=== PATIENT | male | born 1995 | race Caucasian/White ===

== ENCOUNTER 2017-03-26 04:53 | Emergency (ER) | payer MEDICAID, OTHER ==
[~2017-03-26] VITALS: Ht 177.8 cm; Wt 66.0 kg
[2017-03-26 05:00] VITALS: Ht 177.8 cm; Wt 66.0 kg
[2017-03-26] MEDS ORDERED: ONDANSETRON (ODT) 4 MG TAB ODT STA (05:20)
[2017-03-26] MEDS ORDERED: ONDA4TAB14 PO (05:27)
[2017-03-26] MEDS ORDERED: IBUP-1542 PO (05:27)
[2017-03-26] MEDS ORDERED: DICY10CA60 PO (05:27)
[2017-03-26] MEDS ORDERED: IBUPROFEN 600 MG TAB PO ONE (05:30)
[2017-03-26] MEDS ORDERED: DICYCLOMINE 10 MG CAP PO ONE (05:30)
--- NOTE | 2017-03-26 05:37 | ERD ---
ER Documentation Chief Complaint Date/Time DATE: 03/26/17 TIME: 05:31 Chief Complaint body aches, vomiting, diarrhea x1 day HPI 21-year-old male presents here in emergency department for complaints of diarrhea vomiting bodyaches started tonight. Patient had 3 episodes of vomiting 3 episodes of diarrhea. Patient does not have any blood in the stool or black stool. Patient does not have any blood in the vomit. Patient does not have any sick contacts. Patient denies any recent travel. Patient denies any fever or chills. ROS All systems reviewed and are negative except as per history of present illness. Medications Home Meds Active Scripts Ondansetron (Ondansetron Odt) 4 Mg Tab.rapdis, 4 MG PO Q8 Y for NAUSEA AND/OR VOMITING, #30 TAB Prov:QUIRINO BEE COLLECTION ADVISOR 03/26/17 Ibuprofen* (Motrin*) 600 Mg Tab, 600 MG PO Q6H Y for PAIN AND OR ELEVATED TEMP, #30 TAB Prov:QUIRINO BEE COLLECTION ADVISOR 03/26/17 Dicyclomine Hcl* (Bentyl*) 10 Mg Capsule, 10 MG PO QID, #20 CAP Prov:QUIRINO BEE COLLECTION ADVISOR 03/26/17 Allergies Allergies: Coded Allergies: No Known Allergy (Unverified , 10/23/14) PMhx/Soc Medical and Surgical Hx: pt denies Medical Hx, pt denies Surgical Hx Hx Alcohol Use: No Hx Substance Use: No Hx Tobacco Use: No Smoking Status: Never smoker FmHx Family History: No coronary disease, No diabetes, No other Physical Exam Vitals Vital Signs Date Time Temp Pulse Resp B/P Pulse Ox O2 Delivery O2 Flow Rate FiO2 03/26/17 05:51 99.3 96 18 97 Room Air 03/26/17 05:00 99.0 107 20 134/64 100 Physical Exam GENERAL: The patient is well developed and appropriate for usual state of health, in no apparent distress. CHEST: Clear to auscultation bilaterally. There are no rales, wheezes or rhonchi. HEART: Regular rate and rhythm. No murmurs, clicks, rubs or gallops. No S3 or S4. ABDOMEN: Soft, nontender and nondistended. Hyperactive bowel sounds. No rebound or guarding. No gross peritonitis. No gross organomegaly or masses. No Pollard sign or McBurney point tenderness. BACK: No midline or flank tenderness. EXTREMITIES: Equal pulses bilaterally. There is no peripheral clubbing, cyanosis or edema. No focal swelling or erythema. Full range of motion. Grossly neurovascularly intact. NEURO: Alert and oriented. Cranial nerves 2-12 intact. Motor strength in all 4 extremities with 5/5 strength. Sensation grossly intact. Normal speech and gait. SKIN: There is no apparent rash or petechia. The skin is warm and dry. HEMATOLOGIC AND LYMPHATIC: There is no evidence of excessive bruising or lymphedema. No gross cervical, axillary, or inguinal lymphadenopathy. Results 24 hrs Current Medications Medications (Trade) Dose Ordered Sig/Pat Route PRN Reason Start Time Stop Time Status Last Admin Dose Admin Ondansetron HCl (Zofran Odt) 4 mg ONCE STAT ODT 03/26/17 05:20 03/26/17 05:21 DC 03/26/17 05:27 Dicyclomine HCl (Bentyl) 20 mg ONCE ONCE PO 03/26/17 05:30 03/26/17 05:31 DC 03/26/17 05:27 Ibuprofen (Motrin) 600 mg ONCE ONCE PO 03/26/17 05:30 03/26/17 05:31 DC 03/26/17 05:27 Patient was given Zofran here in the emergency department. After treatment, patient was able to tolerate po fluids here in the emergency department without any vomiting. There is no signs and symptoms of dehydration. Bentyl was given here in emergency department, after treatment, patient verbalizing much better.Patient was given medication for pain here in emergency department, after treatment, patient verbalized feeling much better. Patient's pain is improved. Procedures/MDM Medical Decision Making: Patient's symptoms of vomiting and diarrhea bodyaches most likely consistent with viral gastroenteritis. No symptoms of dehydration at this time. There is low suspicion for abdominal emergencies at this time. Patients abdominal exam is normal at this time.. Radiology exam is not indicated at this time. There is low suspicion for appendicitis, cholecystitis, abdominal aortic aneurysms or peritonitis at this time. There is low suspicion for sepsis. Patient appears well and is hemodynamically stable. Disposition: Home. Condition: Stable Prescription Zofran ibuprofen Bentyl Instructions: Patient is advised to take medications as prescribed. Patient is advised to rest, increase fluid intake and do brat diet for next 1-2 days and progress as tolerated. Patient is advised that if symptoms are worse, severe abdominal pain, uncontrolled vomiting, high fever, severe flank pain, worst signs and symptoms, to return to the emergency department immediately. Otherwise, patient can follow up with primary care doctor in 5-7 days. Departure Diagnosis: Primary Impression: Viral gastroenteritis Condition: Stable Patient Instructions: Gastroenteritis, Viral (6Y-Adult) QUIRINO BEE NP March 26, 2017 05:37
[2017-03-26 05:51] VITALS: PULSE 96; RESP 18; TEMP 99.3
== END 2017-03-26 05:52 | disposition home or self-care (01) ==
LOC: FTE 04:53
DX: A08.4 Viral intestinal infection, unspecified (principal)
CPT/HCPCS: Z7610 ×3; 99284

== ENCOUNTER 2019-03-31 20:49 | Emergency (ER) | payer MEDICAID, OTHER ==
[~2019-03-31] VITALS: Ht 182.9 cm; Wt 70.0 kg
[~2019-03-31 20:49] MED LIST: DICY10CA40 PO; IBUP-1542 PO; ONDA4TAB14 PO
[2019-03-31 21:12] VITALS: BP 134/67; PULSE 89; RESP 20; Ht 182.9 cm; Wt 70.0 kg
[2019-03-31] MEDS ORDERED: IBUP-1542 PO (22:51)
[2019-03-31] MEDS ORDERED: BENZ1LOZ52 MM (22:52)
--- NOTE | 2019-03-31 22:54 | ERD ---
ER Documentation Chief Complaint Chief Complaint fever/body aches x 1 day HPI Patient is a 23-year-old male who presents the ER for concerns of intermittent chills, body aches and sore throat x1 day. Patient denies any cough. Patient denies reported fevers. He states he been taking Tylenol for symptoms which is helping. Patient denies any nausea, vomiting, abdominal pain, chest pain, shortness of breath or LOC. No recent travel. No rashes. ROS All systems reviewed and are negative except as per history of present illness. Medications Home Meds Active Scripts Benzocaine/Menthol* (Cepacol* Sore Throat Lozenges) 1 Each Lozenge, 1 EACH MM q2h PRN for SORE THROAT, #20 LOZENGE Prov:DOYLE VILLALBA PA-C 03/31/19 Ibuprofen* (Motrin*) 600 Mg Tab, 600 MG PO Q6, #30 TAB Prov:DOYLE VILLALBA PA-C 03/31/19 Ondansetron (Ondansetron Odt) 4 Mg Tab.rapdis, 4 MG PO Q8 PRN for NAUSEA AND/OR VOMITING, #30 TAB Prov:QUIRINO BEE NP 03/26/17 Ibuprofen* (Motrin*) 600 Mg Tab, 600 MG PO Q6H PRN for PAIN AND OR ELEVATED TEMP, #30 TAB Prov:QUIRINO BEE NP 03/26/17 Dicyclomine HCl (Dicyclomine HCl) 10 Mg Capsule, 10 MG PO QID, #20 CAP Prov:QUIRINO BEE NP 03/26/17 Allergies Allergies: Coded Allergies: No Known Allergy (Unverified , 10/23/14) PMhx/Soc Hx Alcohol Use: No Hx Substance Use: No Hx Tobacco Use: No FmHx Family History: No diabetes Physical Exam Vitals Vital Signs Date Temp Pulse Resp B/P (MAP) Pulse Ox O2 O2 Flow FiO2 Time Delivery Rate 03/31/19 99.2 89 20 134/67 98 21:12 (89) Physical Exam GENERAL: Well-developed, well-nourished male. Appears in no acute distress. HEAD: Normocephalic, atraumatic. No deformities or ecchymosis. EYE: Pupils equal, round, and reactive to light. EOMs intact. No conjunctival erythema. No eye discharge. ENT: External ear without any masses or tenderness. Auditory canals clear bilaterally. TM visualized bilaterally, non-erythematous, non-bulging. Nasal mucosa pink with no discharge. Oropharynx is pink without any tonsillar erythema or exudates. No uvula deviation. No kissing tonsils. NECK: Supple. No meningismus. Normal ROM of the neck. LUNG: Clear to auscultation bilaterally. No rhonchi, wheezing, rales or coarse breath sounds. HEART: Regular rate and rhythm. No murmurs, rubs or gallops. EXTREMITES: Equal pulses bilaterally. No peripheral clubbing, cyanosis or edema. No unilateral leg swelling. NEUROLOGIC: Alert and oriented to person, place and time. Moving all four extremities. 5/5 strength in all extremities. Normal speech. Steady gait. SKIN: Normal color. Warm and dry. No rashes or lesions. Procedures/MDM MEDICAL DECISION MAKING: This is a 23-year-old male presents the ER for concerns of intermittent chills, body aches and throat pain x1 day. Vital signs were reviewed. Patient was afebrile. Patient was not hypoxic. The patient does not have trismus, muffled voice, uvula deviation, unilateral tonsillar swelling, or drooling. No signs of neck swelling or hyperextension of the neck noted. Given these findings, the patients presentation is most consistent with viral pharyngitis. Low suspicion for epiglottitis, peritonsillar abscess, retropharyngeal abscess, Ludwigs angina, strep pharyngitis, dental abscess. PRESCRIPTIONS: Ibuprofen, Cepacol DISCHARGE: At this time, patient is stable for discharge and outpatient management. Supportive therapies such as OTC throat lozenges and warm salt water gurgles were discussed. I have instructed the patient to follow-up with his/her primary care physician in 1-2 days. I have discussed with the patient the possibility of needing to see a specialist for further workup and imaging studies if symptoms persist. I have instructed the patient to promptly return to the ER for any new or worsening symptoms including increased pain, fever, nausea, vomiting, weakness or LOC. The patient and/or family expressed understanding of and agreement with this plan. All questions were answered. Home care instructions were provided. Disclaimer: Inadvertent spelling and grammatical errors are likely due to EHR/dictation software use and do not reflect on the overall quality of patient care. Also, please note that the electronic time recorded on this note does not necessarily reflect the actual time of the patient encounter. Departure Diagnosis: Primary Impression: Pharyngitis with viral syndrome Condition: Fair Patient Instructions: Pharyngitis, Viral Additional Instructions: Call your primary care doctor TOMORROW for an appointment during the next 1-2 days.See the doctor sooner or return here if your condition worsens before your appointment time. DOYLE VILLALBA PA-C March 31, 2019 22:54
[2019-04-01] MEDS ORDERED: IBUPROFEN 600 MG TAB PO ONE
== END 2019-03-31 23:55 | disposition home or self-care (01) ==
LOC: FTE 20:49
DX: J02.8 Acute pharyngitis due to other specified organisms (principal); B97.89 Other viral agents as the cause of diseases classified elsewhere
CPT/HCPCS: Z7502; Z7610; 99282